=== PATIENT | female | born 1985 | race African-American/Black ===

== ENCOUNTER 2020-05-06 01:05 | Inpatient (IN) | payer BC ==
[2020-05-06] MEDS: VANCOMYCIN 1 GM in D5W (PRE-DOCKED) 1,000 MG/250 ML IVPB SCH ×2 (03:00→15:15)
[2020-05-06] MEDS ORDERED: PROMETHAZINE HCL 25 MG/1 ML VIAL IVPB ONE (04:00)
[2020-05-06] MEDS ORDERED: BUTORPHANOL TARTRATE 1 MG/ML VIAL IVPB ONE (04:00)
[2020-05-06] MEDS ORDERED: BUTORPHANOL TARTRATE 2 MG/ML VIAL ONE (04:12)
[2020-05-06] MEDS ORDERED: PROMETHAZINE HCL 25 MG/1 ML VIAL ONE (04:12)
[2020-05-06 04:13] LABS: BASO % 0.3 % (0-2.0); EOS % 0.7 % (0-4.5); HEMATOCRIT 32.9 % (32.4-45.2); HEMOGLOBIN 10.7 GM/dL (10.7-15.3); LYMPH % 20.7 % (8-40); MCH 24.7 pg (25.7-33.7); MCHC 32.4 g/dl (32.0-36.0); MEAN CELL VOLUME 76.1 fl (80-96); MONO % 6.3 % (3.8-10.2); PLATELET COUNT 238 K/MM3 (134-434); RBC 4.32 M/mm3 (3.60-5.2); RDW 26.2 % (11.6-15.6); WHITE BLOOD COUNT 8.3 K/mm3 (4.0-10.0)
--- NOTE | 2020-05-06 04:30 | HP ---
Past Medical History - Primary Care Physician PCP:: Krish Marte - Admission Chief Complaint: Lower abdoininal pain History of Present Illness: 35 yo NEGRA 04/28/20, EGA 41 weeks 1 day, presented with the above No bleeding or leaking fluid per vagina. Advanced maternal age. History Source: Patient Limitations to Obtaining History: No Limitations - Past Medical History ...: 5 ...Para: 3 ... Weeks Gestation by Dates: 41.1 ...EDC by Dates: 04/28/20 - Past Surgical History Hx Myomectomy: No Hx Transabdominal Cerclage: No - Smoking History Smoking history: Never smoked - Alcohol/Substance Use Hx Alcohol Use: No History of Substance Use: reports: None - Social History History of Recent Travel: No Home Medications - Allergies Allergies/Adverse Reactions: Allergies Allergy/AdvReac Type Severity Reaction Status Date / Time Penicillins Allergy Mild Verified 05/06/20 02:22 - Home Medications Home Medications: Ambulatory Orders Vitamins (Sjr) - 1 tab PO DAILY 05/06/20 Family Medical History Family History: Denies Review of Systems - Review of Systems Constitutional: reports: No Symptoms Eyes: reports: No Symptoms HENT: reports: No Symptoms Neck: reports: No Symptoms Cardiovascular: reports: No Symptoms Respiratory: reports: No Symptoms Gastrointestinal: reports: No Symptoms Genitourinary: reports: No Symptoms Breasts: reports: No Symptoms Reported Musculoskeletal: reports: No Symptoms Integumentary: reports: No Symptoms Neurological: reports: No Symptoms Endocrine: reports: No Symptoms Hematology/Lymphatic: reports: No Symptoms Psychiatric: reports: No Symptoms Physical Exam - Maternity Vital Signs: Vital Signs Temperature Pulse Rate 89 05/06/20 03:00 Respiratory Rate 05/06/20 03:00 Blood Pressure 133/80 05/06/20 03:00 O2 Sat by Pulse Oximetry (%) Constitutional: Yes: Well Nourished Eyes: Yes: WNL HENT: Yes: WNL Neck: Yes: WNL Cardiovascular: Yes: WNL Lungs: Clear to auscultation - Abdominal Exam/OB Fundal Height: 39 Number of Fetuses: Single Presentation: Vertex Contractions: Yes Regularity: Regular Intensity: Mild/Mod Monitor Mode: External Heart Rate (range): 140 Heart Rate Location: [facility] Category: I Accelerations: Uniform Decelerations: None - Vaginal Exam/OB Vaginal Bleeding: No Speculum Exam: No Dilatation (cm): 5 Effacement (%): 100 Amniotic Membrane Status: Intact Presentation: Vertex/Position Station: -1 - Physical Exam Musculoskeletal: Yes: WNL Extremities: Yes: WNL Edema: No Integumentary: Yes: WNL ...Motor Strength: WNL Psychiatric: Yes: WNL - Labs Lab Results: CBC, BMP 05/06/20 03:00 Problem List - Problems (1) 41 weeks gestation of Code(s): Z3A.41 - 41 WEEKS GESTATION OF Assessment/Plan Late term gestation in labor Admit L and D for management
[2020-05-06 04:31] LABS: INR 0.92 (0.83-1.09); PROTHROMBIN TIME (PATIENT) 10.8 SEC (9.7-13.0)
[2020-05-06 04:33] LABS: ACTIVATED PTT 27.6 SECONDS (25.2-36.5)
[2020-05-06 04:37] LABS: CALCIUM 8.9 mg/dL (8.5-10.1); CREATININE 0.8 mg/dL (0.55-1.3); POTASSIUM 3.9 mmol/L (3.5-5.1)
--- NOTE | 2020-05-06 04:50 | PN ---
Progress Note (short form) - Note Progress Note: Patient requesting parenteral analgesia. Declines epidural analgesia VSS, afebrile EFM - Baseline 140/min, moderate variability, acceleration, no deceleration Tocos - q5 Pelvic - 5cm/100%/-1. AROM performed, Clear fluid Plan - Late term gestation in labor Anticipate vaginal delivery. Problem List - Problems (1) 41 weeks gestation of Code(s): Z3A.41 - 41 WEEKS GESTATION OF
[2020-05-06 04:51] LABS: BLOOD UREA NITROGEN 7.3 mg/dL (7-18)
[2020-05-06 05:29] VITALS: BMI 30.2
[2020-05-06] MEDS ORDERED: OXYTOCIN 30 UNITS in 0.9% NS 30 UNIT/500 ML INFUS.BAG IVPB SCH (05:45)
[2020-05-06] MEDS ORDERED: OXYTOCIN 30 UNITS in 0.9% NS 60 UNIT/1,000 ML INFUS.BAG IVPB ONE (05:56)
--- NOTE | 2020-05-06 06:00 | PN ---
Progress Note (short form) - Note Progress Note: Late term gestation in labor VSS, afebrile EFM - Baseline 140/min, moderate variability, accelerations, no decelerations Pelvic - 9cm/100/0 Plan - Anticipate vaginal delivery. Problem List - Problems (1) 41 weeks gestation of Code(s): Z3A.41 - 41 WEEKS GESTATION OF
[2020-05-06] MEDS ORDERED: OXYTOCIN 30 UNITS in 0.9% NS 30 UNIT/500 ML INFUS.BAG IVPB ONE (06:08)
[2020-05-06] MEDS ORDERED: METHYLERGONOVINE MALEATE 0.2 MG/1 ML AMP IM ONE (08:30)
[2020-05-06] MEDS ORDERED: IBUPROFEN 600 MG TABLET (FP) PO ONE (09:13)
[2020-05-06] MEDS ORDERED: ACETAMINOPHEN 325 MG TABLET (FP) ONE (09:14)
[2020-05-06] MEDS: IBUPROFEN 600 MG TABLET (FP) PO PRN (09:20)
[2020-05-06] MEDS ORDERED: WITCH HAZEL 50% (TUCKS) 40 PAD/JAR PAD TP PRN (09:29)
[2020-05-06] MEDS ORDERED: BENZOCAINE 20% 57 GM BOTTLE TP PRN (09:29)
[2020-05-06] MEDS ORDERED: METHYLERGONOVINE MALEATE 0.2 MG/1 ML AMP IM PRN (09:29)
[2020-05-06] MEDS ORDERED: ACETAMINOPHEN 325 MG TABLET (FP) PO PRN (09:29)
[2020-05-06] MEDS ORDERED: BENZOCAINE 28 GM HEMORRHOIDAL OINTMENT TP PRN (09:29)
[2020-05-06] MEDS ORDERED: OXYTOCIN 20 UNITS in 0.9% NS 20 UNIT/1,000 ML INFUS.BAG IV SCH (09:30)
--- NOTE | 2020-05-06 09:35 | PN ---
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
[2020-05-06 10:00] LABS: OVALOCYTE 1+; TARGET CELLS 1+
[2020-05-06] MEDS: PRENATAL VITAMINS W/ FOLIC ACID TABLET (FP) PO SCH (10:00)
[2020-05-06] MEDS: DOCUSATE SODIUM 100 MG CAPSULE (FP) PO SCH (11:53)
[2020-05-07] MEDS ORDERED: VANCOMYCIN 1 GM in D5W (PRE-DOCKED) 1,000 MG/250 ML IVPB SCH (03:00)
[2020-05-07 08:09] LABS: BASO % 0.3 % (0-2.0); EOS % 0.4 % (0-4.5); HEMATOCRIT 24.7 % (32.4-45.2); LYMPH % 17.8 % (8-40); MCH 24.6 pg (25.7-33.7); MCHC 32.4 g/dl (32.0-36.0); MEAN CELL VOLUME 75.9 fl (80-96); MONO % 5.7 % (3.8-10.2); NEUT % 75.8 % (42.8-82.8); PLATELET COUNT 201 K/MM3 (134-434); RBC 3.26 M/mm3 (3.60-5.2); RDW 26.6 % (11.6-15.6); WHITE BLOOD COUNT 14.4 K/mm3 (4.0-10.0)
[2020-05-07] MEDS: PRENATAL VITAMINS W/ FOLIC ACID TABLET (FP) PO SCH (09:51)
[2020-05-07] MEDS: FERROUS SO4 325 MG TABLET (FP) PO SCH (09:52)
[2020-05-07] MEDS: DOCUSATE SODIUM 100 MG CAPSULE (FP) PO SCH (09:52)
--- NOTE | 2020-05-07 18:54 | PN ---
Progress Note (short form) - Note Progress Note: Patient without complaints Tolerating diet ambulating minimal lochial flow VS wnl Hb- 8.0 Heart and lungs- wnl Abdomen soft, uterus well contracted normal lochial flow no calf tenderness Plan- Discharge home tomorrow Follow up at health center in 1 week then 6 weeks for care
--- NOTE | 2020-05-07 19:00 | DS ---
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: Vital Signs Temperature 98.2 F 05/07/20 10:00 Pulse Rate 83 05/07/20 10:00 Respiratory Rate 16 05/07/20 10:00 Blood Pressure 123/80 05/07/20 10:00 O2 Sat by Pulse Oximetry (%) Constitutional: Yes: Well Nourished Cardiovascular: Yes: WNL Respiratory: Yes: WNL Gastrointestinal: Yes: WNL External Genitalia: Yes: Normal Breast(s): Yes: WNL Extremities: Yes: WNL Labs: CBC, BMP 05/07/20 07:25 05/06/20 03:00 Delivery - Delivery Episiotomy/Laceration: None EBL (cc): 400 Delivery, Single - Stages of Labor Date 1st Stage Initiatied: 05/06/20 Time 1st Stage Initiated: 01:00 Date 2nd Stage Initiated: 05/06/20 Time 2nd Stage Initiated: 07:00 Date of Delivery: 05/06/20 Time of Delivery: 08:23 Time Placenta Delivered: 08:32 - Condition of Information Technology Account Manager/Due Diligence Coordinator Present: No Infant Gender: Female Position: Left Total Hours ROM (Hrs/Mins): 4hrs 23 min - 1 Minute Total Score: 8 5 Minutes Total Score: 9 - Feeding Plan Initial Plan: Exclusive throughout hospitalization Remarks - Remarks Remarks: Patient asymptomatic discharge tomorrow with instructions Discharge Summary Problems reviewed: Yes Reason For Visit: LABOR ADMIT Current Active Problems 41 weeks gestation of (Acute) Procedures: Principal: Hospital Course: uneventful Plan of Treatment: Follow up at health center in 1 week, call for appointment Home on ibuprofen, colace , ferrous sulfate and vitamin Condition: Stable - Instructions Diet, Activity, Other Instructions: regular follow up at health in 1 week, call for appointment Ibuprofen 600mg 1 tab po q6hrs prn pain colace 100mg 1 tab po daily prn constipation vitamin 1 tab po daily ferrous sulfate 325 mg 1 tab po daily Disposition: HOME - Home Medications Comprehensive Discharge Medication List: Ambulatory Orders Vitamins (Sjr) - 1 tab PO DAILY 05/06/20 Prescription Drug Monitoring Program (I-STOP) results: I-STOP not reviewed
[2020-05-07] MEDS ORDERED: SENNOSIDES/DOCUSATE COMBO (SENNA PLUS) TABLET (UD) PO PRN (22:00)
[2020-05-07 22:24] VITALS: TEMP 98
[2020-05-08] MEDS: IBUPROFEN 600 MG TABLET (FP) PO PRN (08:36)
[2020-05-08] MEDS ORDERED: PRENATAL VITAMINS W/ FOLIC ACID TABLET (FP) PO SCH (10:00)
[2020-05-08] MEDS: FERROUS SO4 325 MG TABLET (FP) PO SCH (12:44)
[2020-05-08] MEDS: DOCUSATE SODIUM 100 MG CAPSULE (FP) PO SCH (12:44)
[2020-05-08 14:00] VITALS: BP 125/73; PULSE 87
== END 2020-05-08 22:15 | disposition home or self-care (01) | DRG 807 ==
LOC: EDBD 01:05 → JDEL 01:05 → JLDR 01:30 → J3W 11:00
PROVIDERS: ADMIT Obstetrics & Gynecology; ATTEND Obstetrics & Gynecology
PROC: 10E0XZZ Delivery of Products of Conception, External Approach (ICD-10-PCS; principal; 2020-05-06)
PROC: 10907ZC Drainage of Amniotic Fluid, Therapeutic from Products of Conception, Via Natural or Artificial Opening (ICD-10-PCS; 2020-05-06)
DX: O48.0 Post-term pregnancy (principal); Z37.0 Single live birth; Z3A.41 41 weeks gestation of pregnancy; Z88.0 Allergy status to penicillin
CPT/HCPCS: 36415; 59409; 80048; 85025; 85610; 85730; 86780; 86850; 86900; 86901; 87389; U0003